=== PATIENT | female | born 1980 | race Caucasian/White ===

== ENCOUNTER → 2017-12-06 | Outpatient (CLI) | payer BC, OTHER ==
[~2017-12-06] MED LIST: ALBU90I INH; ALBU90OI INH; AMITIZA PO; AMOX500 PO; AZIT250 PO; CIPR250 PO; CIPR500 PO; CYCL10 PO; DIPH50 PO; DOCU100 PO; FLUR100; GUAPHELA PO; HYDACE5 PO; HYDACE5325 PO; HYDGUAL120 PO; HYDR1TAB94 PO; IBUP800 PO; MAGCIT300 PO; METF500C PO; METO10 PO; METPRE4DP PO; MONT10T; NITR100 PO; NITR100CA PO; Norco 5-325 Ta1 EACH PO; PRED20 PO; PROCODE120 PO; RXHYD5325 PO; RXSULTRIDS PO; SENNA PO; SULTRIDS PO; Valium5 MG PO; Verotin-Gr Cap1 EACH PO; [UNRECOGNIZED DRUG - OTHER] PO
[2017-12-06 16:58] LABS: BASOPHILS ABSOLUTE AUTO 0.02 K/mm3 (0.00-0.23); BASOPHILS PERCENT AUTO 0 % (0-2); EOSINOPHILS ABSOLUTE AUTO 0.12 K/mm3 (0.00-0.68); EOSINOPHILS PERCENT AUTO 2 % (0-6); Hematocrit 40.6 % (33.0-51.0); Hemoglobin 13.8 g/dL (11.5-16.0); IMMATURE GRAN ABSOLUTE AUTO 0.01 K/mm3 (0.00-0.10); IMMATURE GRAN PERCENT AUTO 0 % (0-1); LYMPHOCYTES ABSOLUTE AUTO 2.27 K/mm3 (0.84-5.20); LYMPHOCYTES PERCENT AUTO 29 % (21-46); MONOCYTES ABSOLUTE AUTO 0.48 K/mm3 (0.16-1.47); MONOCYTES PERCENT AUTO 6 % (4-13); Mean Corpuscular HGB 30.9 pg (26.0-34.0); Mean Corpuscular Volume 91 fL (80-100); NEUTROPHILS ABSOLUTE AUTO 4.86 K/mm3 (1.96-9.15); NEUTROPHILS PERCENT AUTO 63 % (41-73); Platelet Count 327 K/mm3 (150-400); RDW Coefficient Variation 12.6 % (11.7-14.2); RDW Standard Deviation 41.8 fL (35.1-46.3); Red Blood Cell Count 4.47 M/mm3 (3.80-5.20); White Blood Cell Count 7.76 K/mm3 (4.00-11.30)
[2017-12-06 17:40] LABS: Alanine Aminotransfer (ALT/SGP 41 U/L (12-78); Albumin, Blood 3.6 g/dL (3.4-5.0); Albumin/Globulin Ratio 0.9 (0.8-1.8); Alk Phos 45 U/L (50-136); Anion Gap 9 mmol/L (6-16); Aspartate Aminotrans (AST/SGOT 25 U/L (12-37); Bilirubin, Total 0.6 mg/dL (0.1-1.0); Blood Urea Nitrogen 15 mg/dL (8-24); Bun/Creatinine Ratio 19.8 (12.0-20.0); CO2, Blood 26 mmol/L (21-32); Calcium, Blood 9.2 mg/dL (8.5-10.1); Chloride, Blood 104 mmol/L (98-108); Creatinine, Blood 0.76 mg/dL (0.40-1.00); Globulin, Blood 4.1 g/dL (2.2-4.0); Glomerular Filtration Rate >60 (60-); Glucose, Blood 105 mg/dL (70-99); Potassium, Blood 3.8 mmol/L (3.5-5.5); Sodium, Blood 139 mmol/L (136-145); Total Protein, Blood 7.7 g/dL (6.4-8.2)
[2017-12-06 17:45] LABS: Thyroid Stimulating Hormone 0.976 uIU/mL (0.360-4.800)
== END | disposition home or self-care (01) ==
LOC: LAB 16:08
PROVIDERS: Nurse Practitioner Family
DX: R20.0 Anesthesia of skin (principal)
CPT/HCPCS: 80053; 83036; 84443; 85025

== ENCOUNTER → 2018-01-19 | Outpatient (CLI) | payer BC, OTHER ==
[2018-01-19 16:47] LABS: Free Thyroxine 0.74 ng/dL (0.70-1.60)
[2018-01-19 16:52] LABS: Thyroid Stimulating Hormone 0.802 uIU/mL (0.360-4.800)
[2018-01-20 13:10] LABS: Rheumatoid Factor, Serum Negative (Negative)
[2018-01-21 11:16] LABS: Antinuclear Antibody Screen Negative (Negative)
== END | disposition home or self-care (01) ==
LOC: LAB SHORT 15:39
PROVIDERS: Nurse Practitioner Family
DX: R20.0 Anesthesia of skin (principal)
CPT/HCPCS: 84439; 84443; 85651; 86038; 86430

== ENCOUNTER → 2018-04-21 | Outpatient (CLI) | payer BC, OTHER ==
[2018-04-21 15:49] LABS: Source, Urine Clean Catch
[2018-04-21 18:12] LABS: Appearance, Urine Clear (Clear); Bilirubin, Urine Neg (Neg); Blood, Urine 5+ (Neg); Color, Urine Yellow (P-Yellow); Glucose Qualitative, Urine Neg (Neg); Ketones, Urine Neg (Neg); Leukocyte Esterase, Urine 3+ (Neg); Nitrite, Urine Neg (Neg); Protein, Urine Neg (Neg); Specific Gravity, Urine 1.025 (1.003-1.022); Urobilinogen, Urine NORM (Normal)
[2018-04-21 18:31] LABS: White Blood Cells, Urine 25-50 /hpf (0-5)
[2018-04-21 18:33] LABS: Bacteria Mod /hpf; Renal Epithelial Rare /hpf (0-Rare); Squamous Epithelial Cells Mod /hpf (Few); Transitional Epithelial Cells Few /hpf (0-Rare)
[2018-04-22 11:03] LABS: Candida species (DNA Probe) Negative (NEGATIVE); G. vaginalis (DNA Probe) Positive (NEGATIVE); T. vaginalis (DNA Probe) Negative (NEGATIVE)
== END ==
LOC: LAB SHORT 15:30 → LAB 15:30
PROVIDERS: Obstetrics & Gynecology
DX: R30.0 Dysuria (principal)
CPT/HCPCS: 81001; 87086; 87480; 87510; 87660

== ENCOUNTER → 2019-01-20 | Outpatient (CLI) | payer BC, OTHER ==
[2019-01-20 17:26] LABS: BASOPHILS ABSOLUTE AUTO 0.03 K/mm3 (0.00-0.23); BASOPHILS PERCENT AUTO 0 % (0-2); EOSINOPHILS ABSOLUTE AUTO 0.08 K/mm3 (0.00-0.68); EOSINOPHILS PERCENT AUTO 1 % (0-6); Hematocrit 44.8 % (33.0-51.0); Hemoglobin 15.1 g/dL (11.5-16.0); IMMATURE GRAN ABSOLUTE AUTO 0.05 K/mm3 (0.00-0.10); IMMATURE GRAN PERCENT AUTO 1 % (0-1); LYMPHOCYTES ABSOLUTE AUTO 1.44 K/mm3 (0.84-5.20); LYMPHOCYTES PERCENT AUTO 14 % (21-46); MONOCYTES ABSOLUTE AUTO 0.65 K/mm3 (0.16-1.47); MONOCYTES PERCENT AUTO 6 % (4-13); Mean Corpuscular HGB 30.5 pg (26.0-34.0); Mean Corpuscular HGB Conc 33.7 g/dL (31.5-36.5); Mean Corpuscular Volume 91 fL (80-100); Mean Platelet Volume 9.6 fL (9.1-12.4); NEUTROPHILS ABSOLUTE AUTO 8.07 K/mm3 (1.96-9.15); NEUTROPHILS PERCENT AUTO 78 % (41-73); Platelet Count 336 K/mm3 (150-400); RDW Coefficient Variation 12.6 % (11.7-14.2); RDW Standard Deviation 41.3 fL (35.1-46.3); Red Blood Cell Count 4.95 M/mm3 (3.80-5.20); White Blood Cell Count 10.32 K/mm3 (4.00-11.30)
[2019-01-20 19:10] LABS: Alanine Aminotransfer (ALT/SGP 39 U/L (12-78); Albumin, Blood 3.6 g/dL (3.4-5.0); Albumin/Globulin Ratio 0.8 (0.8-1.8); Alk Phos 45 U/L (50-136); Anion Gap 7 mmol/L (6-16); Aspartate Aminotrans (AST/SGOT 27 U/L (12-37); Bilirubin, Total 0.8 mg/dL (0.1-1.0); Blood Urea Nitrogen 19 mg/dL (8-24); Bun/Creatinine Ratio 23.4 (12.0-20.0); CO2, Blood 27 mmol/L (21-32); Calcium, Blood 8.2 mg/dL (8.5-10.1); Chloride, Blood 103 mmol/L (98-108); Creatinine, Blood 0.81 mg/dL (0.40-1.00); Globulin, Blood 4.4 g/dL (2.2-4.0); Glomerular Filtration Rate >60 (60-); Glucose, Blood 93 mg/dL (70-99); Potassium, Blood 3.7 mmol/L (3.5-5.5); Sodium, Blood 137 mmol/L (136-145)
== END ==
LOC: LAB 17:06 → LAB SHORT 17:06
PROVIDERS: Nurse Practitioner
DX: R10.9 Unspecified abdominal pain (principal)
CPT/HCPCS: 80053; 85025

== ENCOUNTER 2019-03-22 07:02 | Day surgery (SDC) | payer BC, OTHER ==
[~2019-03-22 07:02] MED LIST changes: +GABA300 PO; +Gas-X125 MG PO; +Hydrocodone-Ap1 EA23 PO; +MIRALAX17 GM PO; +NAPR220 PO; +SPIR25 PO
[2019-03-22] MEDS ORDERED: SUCR1 PO (07:52)
[2019-03-22] MEDS ORDERED: OMEPRAZOLE20 MG PO (07:52)
--- NOTE | 2019-03-22 07:53 | NUR ---
PT ADMITTED TO [facility]. AGREES WITH PLANNED SURGER. MEDS, ALLERGIES AND HX REVIEWED. LUNG SOUNDS CLEAR.
--- NOTE | 2019-03-22 11:48 | NUR ---
STATES FEELING BETTER EATIGN CRACKERS AT THIS TIME AND DRINKING WATER
--- NOTE | 2019-03-22 13:33 | NUR ---
Discharge instructions reviewed with patient. Patient verbalizes understanding. Copy given to patient to take home.. Discharged via wheelchair to private car for ride home.
== END 2019-03-22 22:43 | disposition home or self-care (01) ==
LOC: ORSCMMR 07:02 → ORD 08:30 → ORSCMMR 08:30 → ORD 03-24 07:30
PROVIDERS: Surgery
PROC: 0FT44ZZ Resection of Gallbladder, Percutaneous Endoscopic Approach (ICD-10-PCS; principal; 2019-03-22 08:30)
DX: K81.1 Chronic cholecystitis (principal); R73.03 Prediabetes; Z79.899 Other long term (current) drug therapy; E66.9 Obesity, unspecified; Z68.34 Body mass index [BMI] 34.0-34.9, adult
CPT/HCPCS: 82947; 88304; A9270-GY; J0330; J0690; J1885; J2250; J2405; J2704; J2710; J2765; J3010; J7120

== ENCOUNTER → 2019-08-03 | Outpatient (CLI) | payer BC, OTHER ==
[~2019-08-03] MED LIST changes: +OMEPRAZOLE20 MG PO; +SUCR1 PO
== END | disposition home or self-care (01) ==
LOC: LAB 19:12 → LAB SHORT 19:12
DX: R30.0 Dysuria (principal)
CPT/HCPCS: 87086

== ENCOUNTER → 2019-08-08 | Outpatient (CLI) | payer OTHER | END | disposition home or self-care (01) | LOC: LAB SHORT 14:00 → LAB 14:00 | DX: R30.0 Dysuria (principal) | CPT/HCPCS: 87086 ==

== ENCOUNTER 2019-09-07 06:53 | Day surgery (SDC) | payer BC, OTHER ==
[~2019-09-07] VITALS: Ht 157.5 cm; Wt 84.0 kg
== END 2019-09-07 08:35 | disposition home or self-care (01) ==
LOC: ORSCSDS 06:53
PROVIDERS: Student in an Organized Health Care Education/Training Program
PROC: 0DB58ZX Excision of Esophagus, Via Natural or Artificial Opening Endoscopic, Diagnostic (ICD-10-PCS; principal; 2019-09-07 08:00)
PROC: 0DB48ZX Excision of Esophagogastric Junction, Via Natural or Artificial Opening Endoscopic, Diagnostic (ICD-10-PCS; principal; 2019-09-07 08:00)
DX: R10.9 Unspecified abdominal pain (principal); R14.0 Abdominal distension (gaseous); K21.9 Gastro-esophageal reflux disease without esophagitis; Z79.899 Other long term (current) drug therapy
CPT/HCPCS: 82947; 88305; J0461; J2405; J2704; J7120

== ENCOUNTER → 2020-09-27 | Outpatient (CLI) | payer BC, OTHER ==
[2020-10-01 16:07] LABS: HPV 16 Negative (Negative); HPV 18 Negative (Negative); HPV OTHER HR TYPES Negative (Negative)
== END | disposition home or self-care (01) ==
LOC: LAB SHORT 15:12 → LAB 15:12
PROVIDERS: Obstetrics & Gynecology
DX: Z01.419 Encounter for gynecological examination (general) (routine) without abnormal findings (principal)
CPT/HCPCS: 87624; G0123

== ENCOUNTER → 2022-03-27 | Outpatient (CLI) | payer BC | END | disposition home or self-care (01) | LOC: LAB SHORT 18:08 → LAB 18:08 | DX: N34.2 Other urethritis (principal); R30.0 Dysuria | CPT/HCPCS: 87070; 87086; 87205 ==

== ENCOUNTER 2022-06-04 06:24 | Day surgery (SDC) | payer OTHER, BC ==
[~2022-06-04] VITALS: Ht 154.9 cm; Wt 90.6 kg
[~2022-06-04 06:24] MED LIST changes: +DULO60 PO
[2022-06-04] MEDS ORDERED: PREG25 (07:09)
== END 2022-06-04 08:43 | disposition home or self-care (01) ==
LOC: ORSCSDS 06:24
PROVIDERS: Student in an Organized Health Care Education/Training Program
PROC: 0DB48ZX Excision of Esophagogastric Junction, Via Natural or Artificial Opening Endoscopic, Diagnostic (ICD-10-PCS; principal; 2022-06-04 08:00)
PROC: 0DB68ZX Excision of Stomach, Via Natural or Artificial Opening Endoscopic, Diagnostic (ICD-10-PCS; principal; 2022-06-04 08:00)
DX: K21.00 Gastro-esophageal reflux disease with esophagitis, without bleeding (principal); K76.0 Fatty (change of) liver, not elsewhere classified; K58.1 Irritable bowel syndrome with constipation; K31.7 Polyp of stomach and duodenum; E66.9 Obesity, unspecified; Z68.36 Body mass index [BMI] 36.0-36.9, adult; Z79.899 Other long term (current) drug therapy
CPT/HCPCS: 88305; J2704

== ENCOUNTER 2023-03-15 12:59 | Day surgery (SDC) | payer BC ==
[~2023-03-15] VITALS: Ht 154.9 cm; Wt 90.3 kg
[~2023-03-15 12:59] MED LIST changes: +PREG25
--- NOTE | 2023-03-15 15:38 | NUR ---
03/15/23 1538 Sera Berumen RX GIVEN TO , COPY PLACED IN CHART
[2023-03-15 17:24] VITALS: BP 118/86
--- NOTE | 2023-03-15 17:24 | NUR ---
03/15/23 1724 Isi Petit UPON ARRIVING TO STEP DOWN PT TRANSFERRED FROM [facility] TO [facility] WITH STAND BY ASSIST FROM RN AND MA. O2 SATS WERE 90% ON ROOM AIR SO RN APPLIED NASAL CANNULA WITH O2 AT 3L. SATS ARE NOW 99% ON 3L VIA NASAL CANULA. VSS. AT CHAIRSIDE. PT TOLERATING PO FLUIDS AND SNACKS WELL; DENIES NAUSEA. PT DENIES UNTOLERABLE PAIN AND STATED HER LEFT CALF "FEELS A LITTLE TIGHT BUT IT IS NOTHING OUT OF THE NORM FOR ME." PT STATES HER CALF PAIN IS 8/10 BUT "NORMAL FOR HER." RN TREATING WITH PO PAIN MEDS PER DR'S ORDERS.
== END 2023-03-15 18:07 | disposition home or self-care (01) ==
LOC: ORSCSDS 12:59
PROVIDERS: Podiatrist Foot & Ankle Surgery
PROC: 0L8P0ZZ Division of Left Lower Leg Tendon, Open Approach (ICD-10-PCS; principal; 2023-03-15 14:45)
DX: M76.62 Achilles tendinitis, left leg (principal); Q66.02 Congenital talipes equinovarus, left foot; K21.9 Gastro-esophageal reflux disease without esophagitis; F32.A Depression, unspecified; E03.9 Hypothyroidism, unspecified; G62.9 Polyneuropathy, unspecified; Z79.899 Other long term (current) drug therapy; E66.9 Obesity, unspecified; Z68.37 Body mass index [BMI] 37.0-37.9, adult
CPT/HCPCS: 82947; A9270; C1713; J0171; J0690; J1100; J1885; J2250; J2405; J2704; J2710; J2795; J3010; J7120

== ENCOUNTER → 2025-06-18 | Outpatient (CLI) | payer OTHER, BC | LOC: LAB SHORT 12:05 → LAB 12:05 | PROVIDERS: Obstetrics & Gynecology | DX: Z01.419 Encounter for gynecological examination (general) (routine) without abnormal findings (principal) | CPT/HCPCS: 87624; G0123; G0145 ==